=== PATIENT | female | born 1970 | race African-American/Black ===

== ENCOUNTER 2017-04-28 18:19 | Emergency (ER) | payer OTHER ==
[~2017-04-28 18:19] MED LIST: ADVAIR 2501 DISK W/D PO; ALBUTEROL17 GM INH; FLEXERIL10 MG PO; GLUCOPHAGE XR500 MG PO; HUMALOG100 U/ML SUBQ; IBUPROFEN800 MG PO; LISINOPRIL-HCTZ1 T19 PO; LISINOPRIL-HCTZ1 T21 PO; NORCO 5/325 TAB1 TAB PO; NORVASC PO; NORVASC10 MG PO; WALGREEN'S PHARMACY
[2017-04-28 18:57] LABS: BASOPHIL% 0.4 % (0-2.5); DIFF IND NO; EOSINOPHIL# 0.4 X10e3 (0-0.7); EOSINOPHIL% 3.3 % (0.0-7.0); HEMATOCRIT 42.3 % (35.0-45.0); HEMOGLOBIN 13.8 gm/dL (12.0-16.0); LYMPHOCYTE# 2.9 X10e3 (1.0-3.5); LYMPHOCYTE% 26.2 % (17.0-45.0); MEAN CELL VOLUME 89.9 FL (83-96); MEAN CORPUSCULAR HEMOGLOBIN 29.3 PG (28-34); MEAN CORPUSCULAR HGB CONC 32.6 g/dL (30-36); MEAN PLATELET VOLUME 8.3 FL (6.5-11.5); MONOCYTE# 0.7 X10e3 (0-1.0); MONOCYTE% 6.3 % (3.0-12.0); NEUTROPHIL% 63.8 % (40-75); PLATELET COUNT 178 X10e3 (140-420); RED CELL DISTRIBUTION WIDTH 14.9 % (11.0-15.5)
[2017-04-28 19:22] LABS: ALBUMIN SERUM 3.4 g/dL (3.5-5.0); BILIRUBIN,TOTAL 0.6 mg/dL (0.2-2.0); BUN/CREATININE RATIO 15.33; CALCIUM SERUM 8.8 mg/dL (8.4-10.2); CREATININE SERUM 1.5 mg/dL (0.6-1.4); GLOM FILT RATE Estimated 47.6 mL/min (>60); POTASSIUM 3.7 mmol/L (3.5-5.1)
== END 2017-04-28 22:18 | disposition home or self-care (01) ==
LOC: CED 18:19 → CFTX 18:19 → CED 18:52
PROVIDERS: Nurse Practitioner
DX: L02.212 Cutaneous abscess of back [any part, except buttock and flank] (principal); E11.65 Type 2 diabetes mellitus with hyperglycemia; I10 Essential (primary) hypertension; E78.5 Hyperlipidemia, unspecified; F17.210 Nicotine dependence, cigarettes, uncomplicated; Z88.5 Allergy status to narcotic agent; Z79.4 Long term (current) use of insulin; Z98.890 Other specified postprocedural states
CPT/HCPCS: 10060; 36415; 80053; 82947; 85025; 87070; 87205; 96365; 99283; J3370

== ENCOUNTER 2017-04-30 11:39 | Inpatient (IN) | payer OTHER ==
--- NOTE | ~2017-04-30 | BMI ---
[facility] Nutrition Therapy DATE: 05/01/17 Patient: JUHI HOGAN Physician: LUIS [place] [address] [facility] [place]Bed: [address] [place] [address], Zip: [place] [address] Admit Date: 04/30/17 Date of : [birth year] Height: 5 11 Weight: 329 149.5 HIGH BMI NOTE: DX: 46 Y.O. FEMALE ADMITTED FOR ABSCESS (R) GROIN ANTHROPOMETRICS: 5'11", WT: 329# (150 KG), BMI: 45.9 DIET: CONSISTENT CARBOHYDRATE RECOMMENDATIONS: 1. RECOMMEND TO ADD HEALTHY HEART TO PROMOTE GRADUAL WEIGHT LOSS TOWARDS HEALTHY BMI (19.0-25.0) OR +/-10%IBW RD WILL F/U PER PROTOCOL Respectfully, MARIAH LINTON MS, RD, LD [facility] cc: client file
--- NOTE | ~2017-04-30 | DS ---
Unit #: [id number] #: [id number] Patient: JUHI CROWELL [id number] [address] [address] [id number] MR#: [id number] NAME: JUHI CROWELL ROOM: 462 Age: 46 Sex: F Admission Date: 04/30/2017 : 1970 Discharge Date: 05/02/2017 Attending Physician: Lang Smart M.D. Primary Care Physician: [facility] DISCHARGE SUMMARY HISTORY AND HOSPITAL COURSE Ms. Crowell is a 46-year-old female, presented with a necrotic abscess on right lateral thigh. She went to the operating room and had debridement and was admitted the hospital on IV antibiotics and dressing changes. Her wound was stable. There is no cellulitis, no purulent drainage and she has started to develop granulation tissue. [facility]NA has been consulted to see the patient at home and she is to continue her current dressing changes. She will follow up in the office of Dr. García next week. Prescription for Lortab was written. The patient was otherwise ambulatory, tolerating a regular diet. Med reconciliation sheet was completed. Dictated by... Shanta Alexis/shahab TD: 05/02/2017 07:17 JOB #: [id number] DISCHARGE SUMMARY Page 1 of 1 X Lang Smart MD DISCHARGE SUMMARY
--- NOTE | ~2017-04-30 | EKG ---
PATIENT: JUHI HOGAN UNIT #: [id number] Ventricular Rate: 60 BPM Atrial Rate: 60 BPM P-R Interval: 160 ms QRS Duration: 90 ms Q-T Interval: 420 ms QTC Calculation(Bezet): 420 ms P [place]: 52 degrees Calculated R [place]: -21 degrees Calculated T [place]: 32 degrees Diagnosis Line: Sinus rhythm Diagnosis Line: Nonspecific T-wave inversions noted diffusely Diagnosis Line: No previous ECGs available Diagnosis Line: Confirmed by THELMA CARTER MD ([id number]) on Diagnosis Line: 04/30/2017 4:27:40 PM INTERPRETING MD: DUC
--- NOTE | ~2017-04-30 | OR ---
Unit #: [id number] #: [id number] Patient: JUHI CROWELL [id number] [facility] [address] [facility] [place], [place] [address] [id number] MR#: [id number] NAME: JUHI CROWELL ROOM: 462 Date of Procedure: 04/30/2017 Admission Date: 04/30/2017 Surgeon: Lang Smart M.D. : 1970 Attending Physician: Lang Smart M.D. Primary Care Physician: In[facility] OPERATIVE REPORT PREOPERATIVE DIAGNOSIS Necrotic infected wound on the right upper lateral thigh with associated cellulitis. POSTOPERATIVE DIAGNOSIS Necrotic infected wound on the right upper lateral thigh with associated cellulitis. PROCEDURE PERFORMED Sharp excisional full-thickness debridement of the right thigh measuring 6 x 8 cm extending down into the deep subcutaneous tissue. ANESTHESIA General endotracheal anesthesia. ESTIMATED BLOOD LOSS 30 mL. INDICATIONS FOR PROCEDURE Ms. Crowell is a 46-year-old female, who presented to the office today with a painful wound in the right upper lateral thigh. By history, she had an abscess that was drained in the ER and she has had progressive necrosis. There was associated cellulitis and foul-smelling drainage coming from the wound with some necrotic tissue around the incision site. The patient is being admitted for IV antibiotics and surgical debridement. DESCRIPTION OF PROCEDURE The patient was admitted to [facility] and taken directly to the operating room, where after induction of general endotracheal anesthesia, the wound was prepped and draped in the usual sterile fashion. A 10-blade was used to sharply excise the wound circumferentially at the margin of grossly normal tissue. I dissected all the infected and necrotic tissue out to a good clean circumferential base. The wound was saucerized with the debridement. After the specimen was removed and sent to the laboratory, hemostasis obtained using cautery and Vicryl suture ligation of vessels. Once there was good hemostasis, the wound was irrigated. It was packed with fluffs soaked in Betadine and wrung out. So, #1 Vicryl sutures were used as stay sutures to keep the packing intact. ABD pad and perforated tape were used as a dressing. Sponges and needle counts were correct x3. The patient tolerated the procedure well and was transported to recovery in stable condition. She will be admitted to the hospital to initiate dressing changes and to Unit #: [id number] #: [id number] Patient: JUHI CROWELL continue IV antibiotics due to the cellulitis. Dictated by... Shanta Alexis/shahab TD: 05/01/2017 03:46 JOB #: [id number] OPERATIVE REPORT Page 1 of 1 X Lang Smart MD PROCEDURE OPERATIVE NOTE
[2017-04-30] MEDS ORDERED: CEPHALEXIN500 M1 PO (11:59)
[2017-04-30] MEDS ORDERED: IBUPROFEN800 MG PO (11:59)
[2017-04-30] MEDS ORDERED: BACTRIM DS TAB1 EACH PO (12:00)
[2017-04-30 12:58] LABS: CALCIUM SERUM 9.3 mg/dL (8.4-10.2); GLOM FILT RATE Estimated 77.7 mL/min (>60); POTASSIUM 3.6 mmol/L (3.5-5.1)
[2017-04-30] MEDS ORDERED: HYDROCODON-ACE1 EAC7 PO (15:00)
[2017-04-30] MEDS ORDERED: INVOKAMET XR 11 EAC1 (18:16)
[2017-04-30] MEDS ORDERED: ASPIRIN81 M2 PO (18:17)
[2017-04-30] MEDS ORDERED: ATENOLOL50 MG PO (18:17)
[2017-04-30] MEDS ORDERED: LANTUS100 U/ML SUBQ (18:20)
[2017-04-30] MEDS ORDERED: LIPITOR20 MG PO (18:44)
[2017-05-01 02:58] LABS: HEMATOCRIT 40.5 % (35.0-45.0); HEMOGLOBIN 13.1 gm/dL (12.0-16.0); MEAN CELL VOLUME 90.7 FL (83-96); MEAN CORPUSCULAR HEMOGLOBIN 29.4 PG (28-34); MEAN CORPUSCULAR HGB CONC 32.4 g/dL (30-36); MEAN PLATELET VOLUME 8.7 FL (6.5-11.5); RED BLOOD COUNT 4.47 X10e (3.90-5.30); RED CELL DISTRIBUTION WIDTH 15.1 % (11.0-15.5); WHITE BLOOD COUNT 8.7 X10e3 (4.0-10.5)
[2017-05-01 03:47] LABS: BUN/CREATININE RATIO 19.09; CALCIUM SERUM 8.3 mg/dL (8.4-10.2); CREATININE SERUM 1.1 mg/dL (0.6-1.4); GLOM FILT RATE Estimated 69.3 mL/min (>60); POTASSIUM 3.9 mmol/L (3.5-5.1)
[2017-05-02] MEDS ORDERED: LORTAB 7.5-3251 EACH PO (09:37)
== END 2017-05-02 10:24 | disposition home health service (06) | DRG 571 ==
LOC: CSUR 11:39 → CPACUOF 13:12 → CSUR 13:30 → C4C 15:15 → CPACUOF 15:15 → CSUR 15:15 → C4C 15:15 → CPACUOF 17:18 → C4C 05-02 10:24
PROVIDERS: Specialist
PROC: 0JBL0ZZ Excision of Right Upper Leg Subcutaneous Tissue and Fascia, Open Approach (ICD-10-PCS; principal; 2017-04-30 13:30)
DX: L02.415 Cutaneous abscess of right lower limb (principal); Z68.42 Body mass index [BMI] 45.0-49.9, adult; I10 Essential (primary) hypertension; L03.115 Cellulitis of right lower limb; E11.9 Type 2 diabetes mellitus without complications; K21.9 Gastro-esophageal reflux disease without esophagitis; E78.5 Hyperlipidemia, unspecified; J45.909 Unspecified asthma, uncomplicated; E78.00 Pure hypercholesterolemia, unspecified; Z79.82 Long term (current) use of aspirin; Z83.3 Family history of diabetes mellitus; Z72.0 Tobacco use; E66.01 Morbid (severe) obesity due to excess calories
CPT/HCPCS: 80048; 82947; 84703; 85027; 88304; 88312; 93005; 94760; J0690; J1170; J1644; J1815; J1885; J2250; J2270; J2405; J2543; J3010; J3370